=== PATIENT | female | born 1975 | race Caucasian/White ===

== ENCOUNTER 2020-10-07 19:25 | Emergency (ER) | payer OTHER ==
[2020-10-07 19:59] LABS: HEMOGLOBIN 11.7 gm/dl (12.3-15.3); RED BLOOD COUNT 3.76 M/UL (4.00-5.10); WHITE BLOOD COUNT 2.6 K/UL (4.5-11.0)
[2020-10-07 20:33] LABS: BUN/CREATININE RATIO 12 (0-10)
[2020-10-07] MEDS ORDERED: LASIX20 MG PO (22:04)
[2020-10-07] MEDS ORDERED: K-DUR TAB 20 M20 MEQ PO (22:05)
== END 2020-10-07 22:10 | disposition home or self-care (01) ==
LOC: ER1 19:25
PROVIDERS: Emergency Medicine
DX: I50.9 Heart failure, unspecified (principal); E87.6 Hypokalemia; M06.9 Rheumatoid arthritis, unspecified; F17.210 Nicotine dependence, cigarettes, uncomplicated
CPT/HCPCS: 71045; 80053; 82550; 82553; 83874; 83880; 84484; 85025; 93005; 96374; 99285; J1940

== ENCOUNTER 2020-11-05 22:31 | Emergency (ER) | payer OTHER ==
[~2020-11-05 22:31] MED LIST: K-DUR TAB 20 M20 MEQ PO; LASIX20 MG PO
[2020-11-06 01:37] LABS: RED BLOOD COUNT 3.47 M/UL (4.00-5.10); WHITE BLOOD COUNT 3.1 K/UL (4.5-11.0)
[2020-11-06 02:00] LABS: BUN/CREATININE RATIO 15 (0-10)
== END 2020-11-06 10:25 | disposition admitted as inpatient to this hospital (09) ==
LOC: ER1 22:31
PROVIDERS: Family Medicine
DX: I31.3 Pericardial effusion (noninflammatory) (principal); M06.9 Rheumatoid arthritis, unspecified; E03.9 Hypothyroidism, unspecified; Z91.012 Allergy to eggs
CPT/HCPCS: ECHO; 71046; 80053; 82550; 82553; 83874; 83880; 84484; 85025; 93005; 93306; 99284

== ENCOUNTER → 2021-04-11 | Outpatient (CLI) | payer OTHER ==
[2021-04-12 07:12] LABS: COMPLEMENT C3, SERUM 98 mg/dL (82-167); COMPLEMENT C4, SERUM 12 mg/dL (12-38); RHEUMATOID ARTHRITIS FACTOR 117.2 IU/mL (0.0-13.9)
[2021-04-12 08:15] LABS: HBSAG SCREEN Negative (Negative); HCV AB <0.1 (0.0-0.9); HEP B CORE AB, TOT Negative (Negative)
[2021-04-12 15:10] LABS: ANGIOTENSIN-CONVERTING ENZYME 45 U/L (14-82)
== END ==
LOC: RAD 12:37
PROVIDERS: Nurse Practitioner Family
DX: M79.641 Pain in right hand (principal); M79.642 Pain in left hand; M79.671 Pain in right foot; M79.672 Pain in left foot; M05.69 Rheumatoid arthritis of multiple sites with involvement of other organs and systems; D89.9 Disorder involving the immune mechanism, unspecified; M25.50 Pain in unspecified joint; R76.8 Other specified abnormal immunological findings in serum; Z11.59 Encounter for screening for other viral diseases; Z79.899 Other long term (current) drug therapy; M19.072 Primary osteoarthritis, left ankle and foot; M19.071 Primary osteoarthritis, right ankle and foot; M19.042 Primary osteoarthritis, left hand; M19.041 Primary osteoarthritis, right hand
CPT/HCPCS: 73130; 73630; 82164; 83520; 85652; 86140; 86160; 86162; 86200; 86431; 86704; 86803; 87340

== ENCOUNTER → 2021-11-08 | Outpatient (CLI) | payer OTHER | LOC: LAB 11:37 | DX: E03.9 Hypothyroidism, unspecified (principal) | CPT/HCPCS: 36415; 84443 ==

== ENCOUNTER → 2021-12-30 | Outpatient (CLI) | payer OTHER ==
[2021-12-30 13:21] LABS: HEMOGLOBIN 12.7 gm/dl (12.3-15.3); RED BLOOD COUNT 4.19 M/UL (4.00-5.10); WHITE BLOOD COUNT 3.8 K/UL (4.5-11.0)
[2021-12-30 13:51] LABS: BUN/CREATININE RATIO 17 (0-10)
== END ==
LOC: LAB 13:03
DX: M13.0 Polyarthritis, unspecified (principal); D89.89 Other specified disorders involving the immune mechanism, not elsewhere classified; M05.79 Rheumatoid arthritis with rheumatoid factor of multiple sites without organ or systems involvement; Z79.899 Other long term (current) drug therapy; Z82.69 Family history of other diseases of the musculoskeletal system and connective tissue
CPT/HCPCS: 36415; 80053; 85027

== ENCOUNTER → 2022-03-07 | Outpatient (CLI) | payer OTHER ==
[2022-03-07 11:53] LABS: HEMOGLOBIN 13.3 gm/dl (12.3-15.3); RED BLOOD COUNT 4.56 M/UL (4.00-5.10); WHITE BLOOD COUNT 3.3 K/UL (4.5-11.0)
[2022-03-07 12:19] LABS: BUN/CREATININE RATIO 15 (0-10)
== END ==
LOC: LAB 11:25
PROVIDERS: Internal Medicine Sports Medicine
DX: M05.79 Rheumatoid arthritis with rheumatoid factor of multiple sites without organ or systems involvement (principal); M35.9 Systemic involvement of connective tissue, unspecified; M13.0 Polyarthritis, unspecified; Z82.69 Family history of other diseases of the musculoskeletal system and connective tissue; D72.819 Decreased white blood cell count, unspecified; Z72.0 Tobacco use
CPT/HCPCS: 36415; 80053; 85025